=== PATIENT | female | born 1985 | race Caucasian/White ===

== ENCOUNTER 2016-05-21 14:48 | Emergency (ER) | payer MEDICAID ==
[~2016-05-21] VITALS: Ht 160 cm; Wt 77.8 kg
[2016-05-21 14:55] VITALS: BP 141/87
== END 2016-05-21 15:55 | disposition home or self-care (01) ==
LOC: ED 14:48
DX: R07.9 Chest pain, unspecified (principal); R09.81 Nasal congestion; R05 Cough